=== PATIENT | male | born 1925 | race Caucasian/White ===

== ENCOUNTER 2016-07-29 04:26 | Inpatient (IN) | payer OTHER, MEDICARE ==
[2016-07-29] VITALS (30 sets, daily range): BP systolic 108–156; BP diastolic 74–98; PULSE 94–154; RESP 12–27; TEMP 97.3–98.4; O2SAT 81–99
[~2016-07-29] VITALS: Ht 182.9 cm; Wt 97.2 kg
[~2016-07-29 04:26] MED LIST: ADVA250A INH; ALPR0.5T3 PO; CILO100T PO; DIGO.125 PO; DILT30 PO; FURO20TA PO; HYDR-3533 PO; LANSO15 PO; MAGN400C2 PO; METO50TA PO; PLAV75TA PO; POTA-267 PO; PRED50TA PO; PRED5TAB PO; SALI0.652; SYMB160A INH; TRAZ50TA4 PO; ULTR50TA PO
[2016-07-29] MEDS ORDERED: DILTIAZEM HCL 25 MG/5 ML VIAL IV PUSH ONE (05:00)
[2016-07-29] MEDS ORDERED: SODIUM CHLORIDE 0.9% FLUSH 5 ML FLUSH IVF PRN ×3 (05:00→07:45)
--- NOTE | 2016-07-29 05:00 | PD ---
HPI Chief Complaint: Respiratory Symptoms Time Seen by Provider: 04:45 Travel History International Travel<30 days: No Contact w/Intl Traveler<30days: No Traveled to known affect area: No History of Present Illness HPI 89-year-old male presents to the emergency department by taxi transportation for evaluation of shortness of breath progressive worsening over the past one day. Patient is also had lower leg and pedal edema over the past 2 weeks, increasing acutely for four days. Patient has not contacted his [place] physician to notify them of these changes. Patient denies any chest pain or abdominal pain. No report of nausea or vomiting diarrhea dysuria frequency urgency skin rash or recent febrile illness. Patient has history of hypertension dyslipidemia sleep apnea atrial fibrillation aortic aneurysm repaired in 2010 COPD and anxiety. Patient was hospitalized June 2015 with severe sepsis and UTI. Patient rates pain as 0/10 in intensity. Patient states he lives alone and was too weak to drive himself to the hospital and did not feel he needed to come by EMS. Patient's primary care provider is through the [place] and his consulting software engineer is Dr. Collins. [facility] Past Medical History Narrative Medical cad, hypertension, dyslipidemia, sleep apnea, atrial fibrillation, aortic aneurysm repaired in 2010, COPD, anxiety, cardiac cath w/ stent placement, fibromyalgia, CVA, turp; nursing notes reviewed AAA: Yes Arthritis: Yes Asthma: No Atrial Fibrillation: Yes Autoimmune Disease: No Anxiety: No Depression: No Heart Rhythm Problems: Yes (A-FIB) Cancer: No Cardiovascular Problems: Yes (ATRIAL FIBRILLATION, CATH WITH STENTS ) High Cholesterol: Yes Chemotherapy: No Chest Pain: No Congestive Heart Failure: No COPD: Yes Cerebrovascular Accident: Yes ("MINI STROKE" ) Diabetes: No Diminished Hearing: Yes Endocrine: No Fibromyalgia: Yes Gastrointestinal Disorders: Yes GERD: Yes Glaucoma: No Genitourinary: Yes Headaches: No Hepatitis: No Hiatal Hernia: No Hypertension: Yes Immune Disorder: No Implanted Vascular Access Dvce: Yes Kidney Stones: No Musculoskeletal: Yes Neurologic: Yes Psychiatric: No Reproductive: No Respiratory: Yes (COPD) Immunizations Current: Yes Migraines: No Myocardial Infarction: No Radiation Therapy: No Renal Failure: No Seizures: No Sickle Cell Disease: No Sleep Apnea: Yes Thyroid Disease: No Ulcer: No Past Surgical History Abdominal Aneurysm Repair: Yes Abdominal Surgery: Yes (REPAIR OF RUPTURED AAA 08/2010, ) AICD: No Appendectomy: Yes Arteriovenous Shunt: No Body Medical Devices: CARDIAC STENTS , AAA STENT Cardiac Surgery: No Cholecystectomy: No Ear Surgery: No Endocrine Surgery: No Eye Surgery: No Genitourinary Surgery: No Gynecologic Surgery: Yes (TURP, SCROTAL SURGERY) Insulin Pump: No Joint Replacement: No Oral Surgery: No Pacemaker: No Thoracic Surgery: No Other Surgery: Yes Social History Alcohol Use: Yes (OCC) Tobacco Use: No Substance Use: No Allergies-Medications (Allergen,Severity, Reaction): Coded Allergies: No Known Allergies (Verified , 07/29/16) Reported Meds & Prescriptions Reported Meds & Active Scripts Active Reported Escitalopram (Escitalopram Oxalate) 5 Mg Tab 5 Mg PO DAILY Atorvastatin (Atorvastatin Calcium) 80 Mg Tab 80 Mg PO HS Lasix (Furosemide) 20 Mg Tab 20 Mg PO DAILY Clonazepam 0.5 Mg Tab 0.5 Mg PO HS PRN Donepezil 10 Mg Tab 10 Mg PO HS Prednisone 5 Mg Tab 5 Mg PO DAILY Proair Hfa 8.5 GM Inh (Albuterol Sulfate) 90 Mcg/Act Aer 2 Puff INH Q4-6H PRN 108 mcg/actuation Ditropan (Oxybutynin Chloride) 5 Mg Tab 5 Mg PO HS Lansoprazole 30 Mg Capdr 30 Mg PO DAILY Losartan (Losartan Potassium) 50 Mg Tab 50 Mg PO DAILY Amlodipine (Amlodipine Besylate) 5 Mg Tab 5 Mg PO DAILY Plavix (Clopidogrel Bisulfate) 75 Mg Tab 75 Mg PO BID Symbicort Inh (Budesonide/Formoterol Fumarate) 160-4.5 Mcg/Act Aero 2 Puff INH Q12HR Trazodone (Trazodone HCl) 50 Mg Tab 50 Mg PO HS PRN Advair Diskus Inh (Fluticasone-Salmeterol Inh) 100-50 Mcg/Blist Aer 1 Puff INH BID Rinse mouth after use. Review of Systems Except as stated in HPI: all other systems reviewed are Neg General / Constitutional: Positive: Chills, No: Fever HENT: No: Congestion Cardiovascular: Positive: Palpitations, Tachycardia, Edema, No: Chest Pain or Discomfort Respiratory: Positive: Shortness of Breath Gastrointestinal: No: Nausea, Vomiting, Diarrhea, Abdominal Pain Genitourinary: No: Urgency, Frequency Musculoskeletal: Positive: Edema, No: Myalgias, Arthralgias Skin: No Rash Neurologic: Positive: Weakness, Dizziness, No: Syncope, Focal Abnormalities, Coordination Problem Psychiatric: No: Anxiety, Depression Hematologic/Lymphatic: No: Easy Bruising Physical Exam Narrative GENERAL: Well-developed well-nourished male in no acute distress no respiratory distress; placed on cardiac monitor technician with atrial fibrillation with RVR SKIN: Warm and dry. HEAD: Normocephalic. EYES: No scleral icterus. No injection or drainage. NECK: Supple, trachea midline. No JVD or lymphadenopathy. CARDIOVASCULAR: Increased irregular irregular rate and rhythm without murmurs, gallops, or rubs. RESPIRATORY: Breath sounds equal bilaterally with bibasilar crackles. No accessory muscle use. GASTROINTESTINAL: Abdomen soft, non-tender, nondistended. MUSCULOSKELETAL: No cyanosis, pitting bilateral lower leg and pedal edema. BACK: Nontender without obvious deformity. No CVA tenderness. Data Data Last Documented VS Vital Signs Date Time Temp Pulse Resp B/P Pulse Ox O2 Delivery O2 Flow Rate FiO2 07/29/16 07:00 103 18 95 Nasal Cannula 2 07/29/16 07:00 116/86 07/29/16 04:35 97.3 Orders Complete Blood Count With Diff (07/29/16 04:46) Comprehensive Metabolic Panel (07/29/16 04:46) B-Type Natriuretic Peptide (07/29/16 04:46) Act Partial Throm Time (Ptt) (07/29/16 04:46) Prothrombin Time / Inr (Pt) (07/29/16 04:46) Magnesium (Mg) (07/29/16 04:46) Ckmb (Isoenzyme) Profile (07/29/16 04:46) Troponin I (07/29/16 04:46) Urinalysis - C+S If Indicated (07/29/16 04:46) Blood Culture (07/29/16 04:46) Iv Access Insert/Monitor (07/29/16 04:46) Electrocardiogram (07/29/16 04:46) Ecg Monitoring (07/29/16 04:46) Oximetry (07/29/16 04:46) Oxygen Administration (07/29/16 04:46) Chest, Single Ap (07/29/16 04:46) Lactic Acid (07/29/16 04:46) Diltiazem Inj (Cardizem Inj) (07/29/16 05:00) Diltiazem Inj (Cardizem Inj) (07/29/16 05:00) Digoxin (07/29/16 04:50) Furosemide Inj (Lasix Inj) (07/29/16 05:45) Ceftriaxone Inj (Rocephin Inj) (07/29/16 05:45) Calcium Gluconate (Calcium Gluconate) (07/29/16 05:45) Furosemide Inj (Lasix Inj) (07/29/16 06:30) ^ Medication Admin Instruction (07/29/16 07:09) ^ Notify Dr: Other (07/29/16 07:09) Phosphorus (Po4) (07/29/16 07:09) Potassium Chlor 40 Meq Premix (Kcl 40 Me (07/29/16 07:15) Potassium Chlor 20 Meq Premix (Kcl 20 Me (07/29/16 07:15) Potassium Cl 40 Meq/30 Ml Liq (Kcl 40 Me (07/29/16 07:15) Potassium Chlor 40 Meq Premix (Kcl 40 Me (07/29/16 07:15) Potassium Chlor 20 Meq Premix (Kcl 20 Me (07/29/16 07:15) Magnesium Sulfate Inj (Magnesium Sulfate (07/29/16 07:15) Magnesium Oxide (Mag-Ox) (07/29/16 07:15) Magnesium Sulfate Inj (Magnesium Sulfate (07/29/16 07:15) Potassium Phosphate (K-Phos) (07/29/16 07:15) Sodium Phosphate Inj (Sodium Phosphate I (07/29/16 07:15) Potassium Cl 40 Meq/30 Ml Liq (Kcl 40 Me (07/29/16 07:15) Potassium Phosphate (K-Phos) (07/29/16 07:15) Potassium Phosphate Inj (Potassium Phosp (07/29/16 07:15) Admit To Inpatient (07/29/16 ) Vital Signs (Adult) MAHSA.Q4H (07/29/16 07:09) Building Insulation Supervisor / Telemetry (07/29/16 07:09) Intake + Output MAHSA.QSHIFT (07/29/16 07:09) Diet Heart Healthy (07/29/16 Breakfast) Sodium Chloride 0.9% Flush (Ns Flush) (07/29/16 09:00) Sodium Chloride 0.9% Flush (Ns Flush) (07/29/16 07:15) Furosemide Inj (Lasix Inj) (07/29/16 09:00) Potassium Chloride (Kcl) (07/29/16 09:00) Basic Metabolic Panel (Bmp) (07/30/16 06:00) Troponin I (07/29/16 07:09) Troponin I (07/29/16 13:09) Resp Oxygen Antolin C Titrat 1-4 L (07/29/16 ) Consult Cardiology (07/29/16 ) Inpatient Certification (07/29/16 ) Activity Oob With Assistance (07/29/16 07:09) Ondansetron Inj (Zofran Inj) (07/29/16 07:15) Bisacodyl Supp (Dulcolax Supp) (07/29/16 07:15) Sennosides (Senokot) (07/29/16 07:15) Electrocardiogram (07/29/16 07:30) Electrocardiogram (07/29/16 13:30) Electrocardiogram (07/29/16 19:30) Acetaminophen (Tylenol) (07/29/16 07:15) (Hub Use Only)Inp Phy Cons/Ref (07/29/16 ) Labs Laboratory Tests Test 07/29/16 07/29/16 07/29/16 04:50 04:55 07:30 White Blood Count 12.5 TH/MM3 Red Blood Count 5.51 MIL/MM3 Hemoglobin 16.3 GM/DL Hematocrit 51.2 % Mean Corpuscular Volume 92.9 FL Mean Corpuscular Hemoglobin 29.6 PG Mean Corpuscular Hemoglobin 31.8 % Concent Red Cell Distribution Width 14.3 % Platelet Count 164 TH/MM3 Mean Platelet Volume 10.3 FL Neutrophils (%) (Auto) 73.6 % Lymphocytes (%) (Auto) 12.1 % Monocytes (%) (Auto) 9.7 % Eosinophils (%) (Auto) 4.3 % Basophils (%) (Auto) 0.3 % Neutrophils # (Auto) 9.3 TH/MM3 Lymphocytes # (Auto) 1.5 TH/MM3 Monocytes # (Auto) 1.2 TH/MM3 Eosinophils # (Auto) 0.5 TH/MM3 Basophils # (Auto) 0.0 TH/MM3 CBC Comment DIFF FINAL Differential Comment Prothrombin Time 14.3 SEC Prothromb Time International 1.3 RATIO Ratio Activated Partial 28.7 SEC Thromboplast Time Sodium Level 142 MEQ/L Potassium Level 3.5 MEQ/L Chloride Level 104 MEQ/L Carbon Dioxide Level 28.6 MEQ/L Anion Gap 9 MEQ/L Blood Urea Nitrogen 17 MG/DL Creatinine 1.30 MG/DL Estimat Glomerular Filtration 52 ML/MIN Rate Random Glucose 115 MG/DL Calcium Level 8.1 MG/DL Phosphorus Level 2.8 MG/DL Magnesium Level 1.5 MG/DL Total Bilirubin 1.1 MG/DL Aspartate Amino Transf 22 U/L (AST/SGOT) Alanine Aminotransferase 42 U/L (ALT/SGPT) Alkaline Phosphatase 182 U/L Total Creatine Kinase 30 U/L Troponin I 0.02 NG/ML B-Type Natriuretic Peptide 435 PG/ML Total Protein 7.3 GM/DL Albumin 3.1 GM/DL Digoxin Level 0.1 NG/ML Lactic Acid Level 2.3 mmol/L Urine pH 6.0 Urine Protein TRACE mg/dL Urine Glucose (UA) NEG mg/dL Urine Ketones NEG mg/dL Urine Occult Blood TRACE Urine Nitrite NEG Urine Bilirubin NEG Urine Leukocyte Esterase SMALL MDM Medical Decision Making Medical Screen Exam Complete: Yes Emergency Medical Condition: Yes Medical Record Reviewed: Yes Interpretation(s) EKG: Atrial fibrillation with RVR and rare PVC QS inferiorly no acute ST elevation or injury pattern change noted Chest x-ray: Diffuse vascular congestion with cardiomegaly no focal infiltrate or effusion Metabolic panel: Normal range renal function mild hypocalcemia of 8.1 normal potassium 3.5 Troponin I less than 0.02, not elevated; CK total 30, not elevated; BNP elevated at 435 Lactic acid elevated 2.3 Coagulation studies: INR 1.3, PT 14.3 mildly elevated; aPTT 28.7 within normal range Differential Diagnosis Atrial fibrillation with RVR, CHF, COPD, ACS, MT, electrolyte disturbance, sepsis Narrative Course Patient is on cardiac monitor technician IV access obtained specimens questions for resulting patient administered weight-based Cardizem with Cardizem infusion ordered to be administered as tolerated @ 5:38 HR now 106-115 after cardiazem 0.25 mg/kg bolus and infusion initiated; patient with bibasilar rales with vascular congestion by cxr and elevated bnp; patient administered iv lasix At 6:30 AM patient continues to show improvement however with blood pressure intermittently decreasing below 100 mmHg will admit to ICU, patient's case discussed with director skills aware patient will be admitted for A. fib COPD and CHF. Patient's case discussed with [place] hospitalist will admit to Dr. Alberts and consult was placed to patient's consulting software engineer Dr. Collins and 2 Dr[address] Etelvina Main. Critical Care Narrative Aggregate critical care time was 40 minutes. Time to perform other separately billable procedures was not included in the critical care time. My time did not include minutes spent treating any other patients simultaneously or on activities that did not directly contribute to the patient's treatment. The services I provided to this patient were to treat and/or prevent clinically significant deterioration that could result in: Arrhythmia, respiratory failure , I provided critical care services requiring my management, as noted below: Chart data review, documentation time, medication orders and management, vital sign assessments/reviewing monitor data, ordering and reviewing lab tests, ordering and interpreting/reviewing x-rays and diagnostic studies, care of the patient and discussion of the patient with the admitting physicians. Sepsis Criteria SIRS Criteria (2 or more): Heart rate over 90, WBC > 24307, < 4000 or > 10% bands Physician Communication Physician Communication call placed for admission --> --admit to Dr Alberts; case discussed with director skills --as going to [facility] ICU--DR Pozo --aware of patient going to ICU -- consult as needed ( saw patient briefly in the ED, also recommends Dr Main consult) Diagnosis Primary Impression: CHF (congestive heart failure) Qualified Code: I50.9 - Acute congestive heart failure, unspecified congestive heart failure type Additional Impressions: Atrial fibrillation with RVR SIRS (systemic inflammatory response syndrome) Admitting Information Admitting Physician Requests: AdmTamiko Pineda MD Jul 29, 2016 05:00
[2016-07-29 05:01] LABS: AUTOMATED NEUTROPHIL # 9.3 TH/MM3 (1.8-7.7); BASOPHIL % 0.3 % (0.0-2.0); EOSINOPHIL # 0.5 TH/MM3 (0-0.4); EOSINOPHIL % 4.3 % (0.0-4.0); HEMATOCRIT 51.2 % (39.0-51.0); LYMPH % 12.1 % (9.0-44.0); LYMPHOCYTE # 1.5 TH/MM3 (1.0-4.8); MEAN CELL VOLUME 92.9 FL (80.0-100.0); MEAN CORPUSCULAR HEMOGLOBIN 29.6 PG (27.0-34.0); MEAN CORPUSCULAR HGB CONC 31.8 % (32.0-36.0); MONO % 9.7 % (0.0-8.0); NEUT % 73.6 % (16.0-70.0); PLATELET COUNT 164 TH/MM3 (150-450); RED BLOOD COUNT 5.51 MIL/MM3 (4.50-5.90); RED CELL DISTRIBUTION WIDTH 14.3 % (11.6-17.2); WHITE BLOOD COUNT 12.5 TH/MM3 (4.0-11.0)
[2016-07-29 05:07] LABS: CHLORIDE 104 MEQ/L (98-107); POTASSIUM 3.5 MEQ/L (3.5-5.1); SODIUM (NA) 142 MEQ/L (136-145)
[2016-07-29] MEDS: DILTIAZEM INJ 125 MG in SODIUM CHLORIDE 0.9% INJ 100 ML IV SCH ×2 (05:09→23:52)
[2016-07-29 05:11] LABS: ANION GAP 9 MEQ/L (5-15); BICARBONATE 28.6 MEQ/L (21.0-32.0); BLOOD UREA NITROGEN 17 MG/DL (7-18); MAGNESIUM 1.5 MG/DL (1.5-2.5)
[2016-07-29 05:14] LABS: ALT (GPT) 42 U/L (12-78); APTT (PATIENT) 28.7 SEC (24.3-30.1); AST (GOT) 22 U/L (15-37); GLOMERULAR FILTRATION RATE 52 ML/MIN (>89); INTERNATIONAL NORMALIZED RATIO 1.3 RATIO; PROTHROMBIN TIME - PATIENT 14.3 SEC (9.8-11.6)
[2016-07-29 05:15] LABS: TOTAL BILIRUBIN ADULT 1.1 MG/DL (0.2-1.0)
[2016-07-29 05:17] LABS: ALKALINE PHOSPHATASE 182 U/L (45-117); CREATINE KINASE 30 U/L (39-308)
[2016-07-29 05:32] LABS: HEMO FLAGS DIFF FINAL
[2016-07-29] MEDS ORDERED: SYMB160A INH (05:32)
[2016-07-29] MEDS ORDERED: ADVA100A INH (05:32)
[2016-07-29] MEDS ORDERED: TRAZ50TA12 PO (05:32)
[2016-07-29] MEDS ORDERED: PLAV75TA29 PO (05:33)
[2016-07-29] MEDS ORDERED: FUROSEMIDE 20 MG/2 ML VIAL IV PUSH ONE ×2 (05:45→06:30)
[2016-07-29] MEDS ORDERED: cefTRIAXone INJ 1,000 MG in SODIUM CHLORIDE 0.9% INJ 100 ML IV ONE (05:45)
[2016-07-29] MEDS ORDERED: CALCIUM GLUCONATE 500 MG TAB PO ONE (05:45)
--- NOTE | 2016-07-29 05:48 | RADHPO ---
EXAM DATE/TIME: 07/29/2016 05:20 [place] COMPARISON: CHEST SINGLE AP, July 05, 2015, 16:41. INDICATIONS : Short of breath MEDICAL HISTORY : Chronic obstructive pulmonary disease. SURGICAL HISTORY : None. ENCOUNTER: Initial ACUITY: 1 day PAIN SCORE: 4/10 LOCATION: Bilateral chest FINDINGS: Mild diffuse interstitial prominence again noted. No acute pneumonia seen. No pleural effusion or pne umothorax. More prominent cardiac silhouette. CONCLUSION: Mild cardiomegaly appears new. However, no evidence of acute cardiopulmonary disease. Chronic interst itial changes are again noted. Reese Gomez MD on July 29, 2016 at 5:45 Board Certified Radiologist. This report was verified electronically.
[2016-07-29 05:51] LABS: DIGOXIN 0.1 NG/ML (0.8-2.0)
[2016-07-29] MEDS ORDERED: AMLO5TAB2 PO (06:07)
[2016-07-29] MEDS ORDERED: LANS30CA PO (06:07)
[2016-07-29] MEDS ORDERED: LOSA50TA PO (06:07)
[2016-07-29] MEDS ORDERED: OXYB5TAB10 PO (06:07)
[2016-07-29] MEDS ORDERED: PRED5TAB PO (06:11)
[2016-07-29] MEDS ORDERED: ALBUAER3 INH (06:11)
[2016-07-29] MEDS ORDERED: DONE10TA7 PO (06:11)
[2016-07-29] MEDS ORDERED: CLON0.5T PO (06:11)
[2016-07-29] MEDS ORDERED: ESCI5TAB PO (06:14)
[2016-07-29] MEDS ORDERED: ATOR1TAB18 PO (06:14)
[2016-07-29] MEDS ORDERED: FURO1TAB62 PO (06:14)
[2016-07-29] MEDS ORDERED: POTASSIUM CHLOR 40 MEQ PREMIX 100 ML IV PRN ×2 (07:15)
[2016-07-29] MEDS ORDERED: SODIUM PHOSPHATE INJ 30 MMOL in SODIUM CHLOR 0.9% 250 ML INJ 240 ML IV PRN (07:15)
[2016-07-29] MEDS ORDERED: ONDANSETRON HCL 4 MG/2 ML VIAL IVP PRN (07:15)
[2016-07-29] MEDS ORDERED: MAGNESIUM OXIDE 400 MG TAB PO PRN (07:15)
[2016-07-29] MEDS ORDERED: POTASSIUM CHLOR 20 MEQ PREMIX 100 ML IV PRN (07:15)
[2016-07-29] MEDS ORDERED: SENNOSIDES 8.6 MG TAB PO PRN (07:15)
[2016-07-29] MEDS ORDERED: ACETAMINOPHEN 325 MG TAB PO PRN (07:15)
[2016-07-29] MEDS ORDERED: POTASSIUM PHOSPHATE MONOBASIC 500 MG TAB PO PRN (07:15)
[2016-07-29] MEDS ORDERED: MAGNESIUM SULFATE INJ 4 GM in SODIUM CHLORIDE 0.9% INJ 92 ML IV PRN (07:15)
[2016-07-29] MEDS ORDERED: MAGNESIUM SULFATE INJ 2 GM in SODIUM CHLORIDE 0.9% INJ 96 ML IV PRN (07:15)
[2016-07-29] MEDS ORDERED: POTASSIUM CL 40 MEQ/30 ML LIQ UDC PO/TUBE PRN ×2 (07:15)
[2016-07-29] MEDS ORDERED: POTASSIUM PHOSPHATE INJ 30 MMOL in SODIUM CHLOR 0.9% 250 ML INJ 250 ML IV PRN (07:15)
[2016-07-29] MEDS ORDERED: BISACODYL 10 MG SUPP PR PRN (07:15)
[2016-07-29] MEDS ORDERED: POTASSIUM PHOSPHATE MONOBASIC 500 MG TAB PO/TUBE PRN (07:15)
[2016-07-29 07:39] LABS: BLOOD, URINE TRACE (NEG); GLUCOSE,URINE NEG (NEG); KETONE, URINE NEG (NEG); NITRITE,URINE NEG (NEG)
[2016-07-29 07:49] LABS: METHOD OF COLLECTION VOIDED; URINE COLOR YELLOW (YELLW/STRAW)
[2016-07-29 08:06] LABS: BACTERIA, URINE MANY /hpf; COMMENT (UR) CULTURE INDICATED; CULTURE IF INDICATED CULTURE INDICATED; SQUAMOUS EPITHELIAL CELL URINE 0-2 /hpf (0-5)
[2016-07-29] MEDS: SODIUM CHLORIDE 0.9% FLUSH 5 ML FLUSH IVF SCH ×2 (08:58→21:00)
[2016-07-29] MEDS: FUROSEMIDE 40 MG/4 ML VIAL IVP SCH ×2 (08:59→18:22)
[2016-07-29] MEDS ORDERED: SODIUM CHLORIDE 0.9% FLUSH 5 ML FLUSH IVF SCH (09:00)
[2016-07-29] MEDS: POTASSIUM CHLORIDE 20 MEQ CONTROLLED RELEASE TAB PO SCH ×2 (09:04→20:31)
--- NOTE | 2016-07-29 09:32 | EKG ---
Date Performed: 07/29/2016 Time Performed: 08:18:42 PTAGE: 89 years EKG: Atrial fibrillation with rapid ventricular response with frequent multifocal PVCs or aberra nt ventricular conduction Left axis deviation Inferior infarct - age undetermined Possible anterior i nfarct - age undetermined Abnormal ECG PREVIOUS TRACING : 07/29/2016 04.57 No significant change from previous tracing noted. DOCTOR: Tres Duran Interpretating Date/Time 07/29/2016 09:30:27
--- NOTE | 2016-07-29 09:33 | EKG ---
Date Performed: 07/29/2016 Time Performed: 04:57:24 PTAGE: 89 years EKG: Probable atrial fibrillation with rapid ventricular response with PVC(s) or aberrant ventri cular conduction Left axis deviation Inferior infarct - age undetermined Abnormal ECG PREVIOUS TRACING : 07/07/2015 08.36 Compared to previous tracing, heart rate has increased. DOCTOR: Tres Duran Interpretating Date/Time 07/29/2016 09:31:31
--- NOTE | 2016-07-29 10:10 | MH ---
cc: DARRIAN AKHTAR MD DATE OF ADMISSION: 07/29/2016 CHIEF COMPLAINT Shortness of breath. HISTORY OF PRESENT ILLNESS This is an 89-year-old male with past medical/surgical history significant for coronary artery disease, hypertension, hyperlipidemia, sleep apnea, atrial fibrillation and abdominal aortic aneurysm repaired in 2010, COPD, anxiety, cardiac catheterization with stent placement, fibromyalgia, CVA, transurethral resection of the prostate, appendectomy, scrotal surgery, who came to the ER at [facility] complaining of shortness of breath which was progressively worsening for the last four days. His significant other is at the bedside who is also the health care surrogate, stating that his legs were getting edematous and getting worse and he was also getting more short of breath. He denies any chest pain or any abdominal pain. He denies any nausea or vomiting, diarrhea, constipation, frequent painful urination, burning urination, blood in the stool or black stool. He denies any palpitations, dizziness or lightheadedness. He denies any headache. Other than that nothing significant. When I examined the patient, the patient feels better and he has no symptoms or complaints at the time of examination. PAST MEDICAL/SURGICAL HISTORY As dictated above. SOCIAL HISTORY Denies smoking but he is an ex-smoker, quit 18 years ago. Smoked three packs a day. He lives alone. He is a retired state highway police officer. FAMILY HISTORY Not significant. ALLERGIES No known drug allergies. MEDICATIONS 1. Lexapro 5 mg p.o. daily. 2. Lipitor 18 mg p.o. daily. 3. Lasix 20 mg p.o. daily. 4. Clonazepam 0.5 mg p.o. h.s. p.r.n. anxiety. 5. Donepezil 10 mg p.o. h.s. 6. Prednisone 5 mg p.o. daily. 7. ProAir HFA, two puffs inhalation q.4h. 8. Ditropan XL 5 mg p.o. daily. 9. Lansoprazole 30 mg p.o. daily. 10.Losartan 50 mg p.o. daily. 11.Amlodipine 5 mg p.o. daily. 12.Cymbicort two puffs inhalation q.12h. 13.Advair Diskus, one puff inhalation twice a day. REVIEW OF SYSTEMS Positive for mild shortness of breath, generalized weakness and leg edema. All other review of systems is negative. PHYSICAL EXAMINATION GENERAL: This is an 89-year-old male sitting in a chair, not in acute distress. VITAL SIGNS: Temperature 97.3, heart rate 103, respirations 18, blood pressure 116/86. O2 saturation 95% on two liter nasal cannula. HEENT: Normocephalic, atraumatic. Extraocular movements intact. Pupils equal, round and reactive to light. Oral mucosa moist. NECK: Supple. No visible thyromegaly or neck mass. Trachea is central. CARDIOVASCULAR: Regular rate and rhythm. LUNGS: Bilateral crackles and decreased air entry. ABDOMEN: Soft, nontender. Bowel sounds audible. EXTREMITIES: No cyanosis or clubbing. +2 pitting edema bilateral lower extremities. Full range of motion of all extremities. NEUROLOGIC: Awake, alert and oriented x4. No focal deficit. SKIN: Warm and dry. PSYCHIATRIC: The patient is cooperative. Mood and affect is normal. LABORATORY DATA CBC is unremarkable except for WBC count of 12.5 high, hemoglobin 16.3 normal, hematocrit 51.2 high, MCHC 31.8 low, neutrophils 73.6 high, monos 9.7 high, eosinophils 4.3 high. CMP is unremarkable except for GFR 52 low, glucose 115 high, lactic acid 2.3 high, magnesium 1.5, total bilirubin 1.1, alkaline phosphatase 182, creatinine kinase 30, troponin-I 0.02 x2, BNP 435 high, albumin 3.1. PT 14.3 high, INR 1.3, APTT 28.7. Urine examination shows mild leukocyte esterase, 9-14 wbc's in the urine, many bacteria, trace occult blood. Culture indicated. Digoxin level 0.1 low. IMAGING DATA Chest x-ray was done and shows mild cardiomegaly appears new, however, no evidence of acute cardiopulmonary disease. Chronic interstitial changes are again noted. ASSESSMENT AND PLAN 1. This is an 89-year-old male who came to the ER diagnosed with shortness of breath most probably secondary to acute on chronic systolic congestive heart failure. Will do strict I's and O's, daily weights, fluid restriction to 1.5 liters a day, salt restriction to 2 grams a day. The patient is on Lasix 40 mg IV twice a day. The patient has crackles in the lungs and leg edema. Cardiology is consulted for further recommendations. 2. Shortness of breath with a history of COPD. Continue the home medication. Pulmonary is consulted. 3. History of depression. Continue the home medication. 4. History of coronary artery disease with stent placement. Continue the home medication. 5. History of hyperlipidemia. Continue with Lipitor 80 mg p.o. daily. 6. History of depression. Continue with Lexapro 5 mg p.o. daily. 7. History of anxiety. Continue with clonazepam 0.5 mg p.o. h.s. p.r.n. anxiety. 8. History of dementia. Continue with donepezil 10 mg p.o. daily. 9. History of urine incontinence. Continue with Ditropan 5 mg p.o. h.s. 10.History of GERD. Prevacid 30 mg p.o. daily. 11.History of COPD. Continue home medication. 12.DVT prophylaxis. Heparin 5000 units subcutaneous twice a day. 13.GI prophylaxis. Protonix 40 mg p.o. daily. 14.We are going to manage the patient on a daily basis and make recommendations on a daily basis. Darrian Akhtar MD EA/DAVID /9:12 AM /10:09 AM
--- NOTE | 2016-07-29 13:02 | MB ---
cc: KULWINDER BUSTILLO DATE OF CONSULTATION: 07/29/2016 HISTORY OF PRESENT ILLNESS Mr. Rosas is an 89-year-old white male, a patient of Dr. Collins with a history of chronic atrial fibrillation, COPD, coronary artery disease and congestive heart failure. He has had increased shortness of breath initially with exertion and progressively at rest over the last week. He has had also increased edema of his lower extremity. He has not had any chest pain. His diuretics have been adjusted by his primary care physician recently. The patient has also had generalized weakness. PAST MEDICAL HISTORY Positive for: 1. Coronary artery disease. 2. Coronary stenting. 3. Chronic atrial fibrillation. 4. Hypertension. 5. Dyslipidemia. 6. Sleep apnea. 7. Aortic aneurysm repair in 2010. 8. COPD. 9. Anxiety. 10. Fibromyalgia. 11. TIA/CVA. 12. TURP. 13. History of neurocardiogenic syncope. 14. Torn retina status post laser treatment. 15. Throat polyp surgery. MEDICATION At home include: 1. Plavix 75 mg a day. 2. Digoxin 0.125 mg a day. 3. Nitroglycerin p.r.n. 4. Metoprolol 25 mg which was weaned off. 5. Diltiazem. 6. Cozaar. 7. Donepezil. 8. Advair Diskus. 9. Lansoprazole. 10. Escitalopram. 12. Prednisone. 13. Tramadol. 14. Vitamin D. ALLERGIES The patient has intolerance to STATINS which result in leg cramps and weakness. SOCIAL HISTORY The patient does not smoke but used to smoke in the past. He drinks alcohol occasionally. FAMILY HISTORY Negative for heart disease. REVIEW OF SYSTEMS Otherwise negative. PHYSICAL EXAMINATION VITAL SIGNS: Blood pressure 115/86, pulse 103 and irregular. HEENT: Negative. NECK: 2+ carotid upstrokes. No bruits. LUNGS: Bibasilar crackles. HEART: Irregularly, irregular with no murmur, gallop or rub. ABDOMEN: Soft, no bruits. EXTREMITIES: 1+ pretibial and 2+ pedal pitting edema. 1+ distal pulses. NEUROLOGIC: Grossly nonfocal. EKG EKG was reviewed and showed atrial fibrillation with increased ventricular response, left axis, inferior Q-waves, delayed R-wave progression in precordial leads and nonspecific ST-T wave changes. LABORATORY DATA Hemoglobin 16.3, potassium 3.5, creatinine 1.3. AST and ALT normal. CK 30, troponin negative x 2, BNP 435. Echocardiogram in 2014 showed ejection fraction of 54%, LVH, bilateral atrial enlargement, dilated aortic root. DIAGNOSIS 1. Acute congestive heart failure. 2. Atrial fibrillation with rapid ventricular response. 3. COPD. 4. Hypertension. 5. Dyslipidemia. 6. Status post abdominal aortic aneurysm repair. DISPOSITION Mr. Rosas will be admitted and monitored on telemetry. We will continue IV diuresis, closely monitoring his renal function and electrolytes. He is ruling out for myocardial infarction by enzymes. We will obtain echocardiogram to reevaluate his left ventricular function. I recommend starting him on Diltiazem p.o. for rate control. He is feeling better after significant diuresis in the emergency room. He will follow up with Dr. Collins, his primary pumping station supervisor, in his office after discharge. MD BRIGID Neely/MARINA /9:06 AM /12:29 PM YRIS
--- NOTE | 2016-07-29 14:49 | EC ---
Study Study Date:07/29/2016 STUDY CONCLUSIONS SUMMARY - Left ventricle: The cavity size was mildly dilated. Wall thickness was normal. Systolic function was severely reduced by visual assessment. The estimated ejection fraction was in the range of 30% to 35%. Diffuse hypokinesis. - Aortic valve: Valve mobility was restricted. Transvalvular velocity was increased less than expected, due to low cardiac output. There was moderate to severe stenosis. Mild regurgitation. Valve area: 1.03cm^2(VTI). Valve area: 1.29cm^2 (Vmax). - Aortic root: The aortic root was moderately dilated. - Mitral valve: Mild regurgitation. - Left atrium: The atrium was mildly to moderately dilated. - Right atrium: The atrium was mildly dilated. - Tricuspid valve: Mild regurgitation. - Pulmonary arteries: Systolic pressure was mildly increased. PA peak pressure: 41mm Hg (S). If LV function is below 40, please consider prescribing an ACEI or ARB or document rationale for non-use. PROCEDURE DATA STUDY STATUS: Elective. Procedure: Transthoracic echocardiography. Image quality was good. Scanning was performed from the parasternal, apical, and subcostal acoustic windows. Study completion: The patient tolerated the procedure well. Transthoracic echocardiography. M-mode, complete 2D, complete spectral Doppler, and color Doppler. Patient status: Inpatient. CARDIAC ANATOMY LEFT VENTRICLE: The cavity size was mildly dilated. Wall thickness was normal. Systolic function was severely reduced by visual assessment. The estimated ejection fraction was in the range of 30% to 35%. Diffuse hypokinesis. AORTIC VALVE: Trileaflet; mildly thickened leaflets. Valve mobility was restricted. Doppler: Transvalvular velocity was increased less than expected, due to low cardiac output. There was moderate to severe stenosis. Mild regurgitation. Valve area: 1.03cm^2(VTI). Valve area: 1.29cm^2 (Vmax). Mean gradient: 8mm Hg (S). Peak gradient: 13mm Hg (S). AORTA: Aortic root: The aortic root was moderately dilated. MITRAL VALVE: Structurally normal valve. Doppler: Transvalvular velocity was within the normal range. There was no evidence for stenosis. Mild regurgitation. LEFT ATRIUM: The atrium was mildly to moderately dilated. RIGHT VENTRICLE: The cavity size was normal. Wall thickness was normal. PULMONIC VALVE: Doppler: Transvalvular velocity was within the normal range. There was no evidence for stenosis. No regurgitation. TRICUSPID VALVE: Structurally normal valve. Doppler: Transvalvular velocity was within the normal range. Mild regurgitation. PULMONARY ARTERY: Systolic pressure was mildly increased. RIGHT ATRIUM: The atrium was mildly dilated. PERICARDIUM: There was no pericardial effusion. SYSTEMIC VEINS: Inferior vena cava: The vessel was normal in size. BASIC MEASUREMENTS ADULT NORMAL Left ventricle LV internal dimension, ED, chordal level, 47.3 mm 43-52 PLAX LV internal dimension, ES, chordal level, 36 mm 23-38 PLAX Fractional shortening, chordal level, PLAX *24 % >29 LV posterior wall thickness, ED 9.8 mm IVS/LVPW ratio, ED 1.18 <1.3 Ventricular septum Septal thickness, ED 11.6 mm Aortic valve Leaflet separation *9 mm 15-26 Right ventricle RV internal dimension, ED, PLAX 31.5 mm 19-38 BASIC MEASUREMENTS ADULT NORMAL Aortic valve Leaflet separation *9 mm 15-26 Aorta Root diameter, ED *45 mm 20-37 Left atrium Anterior-posterior dimension, ES 39 mm 19-40 LA/aortic root ratio 0.87 DOPPLER MEASUREMENTS ADULT NORMAL Main pulmonary artery Pressure, S *41 mm Hg =30 Aortic valve Peak velocity, S 181 cm/s Mean velocity, S 136 cm/s VTI, S 33.6 cm Mean gradient, S 8 mm Hg Peak gradient, S 13 mm Hg Valve area, VTI 1.03 cm^2 Valve area, Vmax 1.29 cm^2 Tricuspid valve Regurgitant peak velocity 274 cm/s Peak RV-RA gradient, S 30 mm Hg Maximal regurgitant velocity 274 cm/s Systemic veins Estimated CVP 10 mm Hg Right ventricle RV pressure, S *41 mm Hg <30 LEGEND: Mean values are shown as u=mean value. Asterisk (*) leal values outside specified normal range. Prepared and signed by Flakito Seaman [id number]
[2016-07-29] MEDS: POTASSIUM CHLOR 20 MEQ PREMIX 100 ML IV PRN ×2 (18:32→20:32)
[2016-07-29] MEDS ORDERED: CHLORHEXIDINE GLUCONATE 2 % 1 PACK (2 CLOTHS)(extra cloths) TOP PRN (19:15)
[2016-07-30] VITALS (34 sets, daily range): BP systolic 93–147; BP diastolic 62–94; PULSE 70–100; RESP 15–30; TEMP 97.6–99.1; O2SAT 90–100
[2016-07-30] MEDS: CHLORHEXIDINE GLUCONATE 2 % 1 PACK (2 CLOTHS)(taper/protocol) TOP SCH (04:00)
[2016-07-30 05:11] LABS: CHLORIDE 103 MEQ/L (98-107); POTASSIUM 3.5 MEQ/L (3.5-5.1); SODIUM (NA) 143 MEQ/L (136-145)
[2016-07-30 05:15] LABS: ANION GAP 8 MEQ/L (5-15); BICARBONATE 31.6 MEQ/L (21.0-32.0); BLOOD UREA NITROGEN 19 MG/DL (7-18)
[2016-07-30 05:18] LABS: ALT (GPT) 30 U/L (12-78); AST (GOT) 9 U/L (15-37); GLOMERULAR FILTRATION RATE 57 ML/MIN (>89)
[2016-07-30 05:19] LABS: TOTAL BILIRUBIN ADULT 0.7 MG/DL (0.2-1.0)
[2016-07-30 05:20] LABS: AUTOMATED NEUTROPHIL # 5.7 TH/MM3 (1.8-7.7); BASOPHIL % 0.4 % (0.0-2.0); EOSINOPHIL # 0.8 TH/MM3 (0-0.4); EOSINOPHIL % 9.1 % (0.0-4.0); HEMATOCRIT 46.5 % (39.0-51.0); HEMO FLAGS DIFF FINAL; LYMPH % 17.7 % (9.0-44.0); LYMPHOCYTE # 1.6 TH/MM3 (1.0-4.8); MEAN CORPUSCULAR HEMOGLOBIN 30.3 PG (27.0-34.0); MEAN CORPUSCULAR HGB CONC 32.9 % (32.0-36.0); MONO % 10.5 % (0.0-8.0); NEUT % 62.3 % (16.0-70.0); PLATELET COUNT 137 TH/MM3 (150-450); RED BLOOD COUNT 5.06 MIL/MM3 (4.50-5.90); RED CELL DISTRIBUTION WIDTH 13.3 % (11.6-17.2); WHITE BLOOD COUNT 9.1 TH/MM3 (4.0-11.0)
[2016-07-30 05:21] LABS: ALKALINE PHOSPHATASE 161 U/L (45-117)
[2016-07-30] MEDS: POTASSIUM CHLOR 20 MEQ PREMIX 100 ML IV PRN (08:00)
--- NOTE | 2016-07-30 09:08 | HHI.PR ---
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 Review of Systems Constitutional Constitutional: Fatigue, Weakness Pulmonary Respiratory: Shortness of Breath Vitals/Results Intake & Output 07/29/16 07/29/16 07/30/16 15:00 23:00 07:00 Intake Total 100 ml 882 ml 200 ml Output Total 350 ml 1200 ml 500 ml Balance -250 ml -318 ml -300 ml Intake Oral 600 ml 120 ml IV Total 100 ml 282 ml 80 ml Output Urine Total 350 ml 1200 ml 500 ml Vital Signs Vital Signs Date Time Temp Pulse Resp B/P Pulse Ox O2 Delivery O2 Flow Rate FiO2 07/30/16 07:00 92 07/30/16 06:00 100 22 110/74 94 07/30/16 06:00 100 07/30/16 06:00 94 2.00 07/30/16 05:03 96 24 136/94 94 07/30/16 05:03 96 07/30/16 04:01 88 07/30/16 04:01 97.8 88 19 139/90 90 07/30/16 03:01 90 21 135/89 92 07/30/16 02:01 100 07/30/16 02:01 100 21 110/78 93 07/30/16 02:00 93 2.00 07/30/16 01:01 92 19 117/75 93 07/30/16 00:01 92 07/30/16 00:01 98.6 92 20 147/92 95 07/30/16 00:00 95 2.00 07/29/16 23:01 96 16 147/97 81 07/29/16 23:01 96 07/29/16 22:20 97 2.00 07/29/16 22:01 98 22 132/97 98 07/29/16 22:01 98 07/29/16 22:00 96 2.00 07/29/16 21:01 100 23 127/94 99 07/29/16 21:01 100 07/29/16 20:03 100 07/29/16 20:03 97.9 100 25 136/87 93 07/29/16 19:05 108 26 146/95 90 07/29/16 18:30 94 23 95 07/29/16 18:15 98 24 07/29/16 18:00 99 07/29/16 18:00 94 12 136/84 07/29/16 17:45 102 22 96 07/29/16 17:30 102 27 07/29/16 17:15 98.4 96 22 131/88 94 07/29/16 17:00 102 16 142/89 95 Nasal Cannula 2 07/29/16 16:00 98 16 156/92 94 Nasal Cannula 2 07/29/16 15:00 105 18 136/90 95 Nasal Cannula 2 07/29/16 14:00 95 18 136/91 95 Nasal Cannula 2 07/29/16 13:55 110 07/29/16 13:00 97 16 119/89 95 Nasal Cannula 2 07/29/16 12:00 98 18 136/86 96 Nasal Cannula 2 07/29/16 11:00 102 16 134/80 95 Nasal Cannula 2 07/29/16 10:00 100 18 128/84 95 Nasal Cannula 2 CBC/BMP: 07/30/16 0440 07/30/16 0440 Lab Results Laboratory Tests Test 07/29/16 07/30/16 13:05 04:40 Troponin I 0.02 NG/ML White Blood Count 9.1 TH/MM3 Red Blood Count 5.06 MIL/MM3 Hemoglobin 15.3 GM/DL Hematocrit 46.5 % Mean Corpuscular Volume 92.0 FL Mean Corpuscular Hemoglobin 30.3 PG Mean Corpuscular Hemoglobin 32.9 % Concent Red Cell Distribution Width 13.3 % Platelet Count 137 TH/MM3 Mean Platelet Volume 10.0 FL Neutrophils (%) (Auto) 62.3 % Lymphocytes (%) (Auto) 17.7 % Monocytes (%) (Auto) 10.5 % Eosinophils (%) (Auto) 9.1 % Basophils (%) (Auto) 0.4 % Neutrophils # (Auto) 5.7 TH/MM3 Lymphocytes # (Auto) 1.6 TH/MM3 Monocytes # (Auto) 1.0 TH/MM3 Eosinophils # (Auto) 0.8 TH/MM3 Basophils # (Auto) 0.0 TH/MM3 CBC Comment DIFF FINAL Differential Comment Sodium Level 143 MEQ/L Potassium Level 3.5 MEQ/L Chloride Level 103 MEQ/L Carbon Dioxide Level 31.6 MEQ/L Anion Gap 8 MEQ/L Blood Urea Nitrogen 19 MG/DL Creatinine 1.20 MG/DL Estimat Glomerular Filtration 57 ML/MIN Rate Random Glucose 101 MG/DL Calcium Level 8.1 MG/DL Magnesium Level 1.9 MG/DL Total Bilirubin 0.7 MG/DL Aspartate Amino Transf 9 U/L (AST/SGOT) Alanine Aminotransferase 30 U/L (ALT/SGPT) Alkaline Phosphatase 161 U/L Total Protein 7.1 GM/DL Albumin 2.9 GM/DL Physical Exam General General Appearance: No Acute Distress, Comfortable Eyes Eye Exam: Pupils Equal, Pupils Reactive, Sclera White, Extraocular Movement Intact Throat Throat Exam: Oral Mucosa [place] & Moist, Oral Pharynx Normal Neck Neck Exam: Neck Supple, Trachea Midline Pulmonary Resp Exam: Crackles, Rhonchi Cardiology CV Exam: Regular Gastrointestinal/Abdomen GI Exam: Soft, Non-Tender, Bowel Sounds Present Musculoskeletal MS Exam: Normal Tone Integumentary Skin Exam: Clear, Warm, Dry, Intact Extremeties Extremities Exam: Pitting Edema Neurologic Neuro Exam: Alert, Awake, Oriented, Speech Clear, Moving All Extremities Psychiatric Psych Exam: Appropriate Responses VTE Prophylaxis VTE Prophylaxis Meds: Heparin PUD Prophylasis PUD Prophylaxis: Protonix Assessment/Plan Assessment/Plan ASSESSMENT AND PLAN 1. This is an 89-year-old male who came to the ER diagnosed with shortness of breath most probably secondary to acute on chronic systolic congestive heart failure. Will do strict I's and O's, daily weights, fluid restriction to 1.5 liters a day, salt restriction to 2 grams a day. The patient is on Lasix 40 mg IV twice a day. Cardiology input noted for further recommendations. 2 D Echo noted EF 30-35% 2. Shortness of breath with a history of COPD. Continue the home medication. 3. History of depression. Continue the home medication. 4. History of coronary artery disease with stent placement. Continue the home medication. 5. History of hyperlipidemia. Continue with Lipitor 80 mg p.o. daily. 6. History of depression. Continue with Lexapro 5 mg p.o. daily. 7. History of anxiety. Continue with clonazepam 0.5 mg p.o. h.s. p.r.n. anxiety. 8. History of dementia. Continue with donepezil 10 mg p.o. daily. 9. History of urine incontinence. Continue with Ditropan 5 mg p.o. h.s. 10.History of GERD. Prevacid 30 mg p.o. daily. 11.History of COPD. Continue home medication. 12.DVT prophylaxis. Heparin 5000 units subcutaneous twice a day. 13.GI prophylaxis. Protonix 40 mg p.o. daily. 14.We are going to manage the patient on a daily basis and make recommendations on a daily basis. Discussed Condition with: Patient Darrian Alberts MD Jul 30, 2016 09:08
[2016-07-30] MEDS: POTASSIUM CHLORIDE 20 MEQ CONTROLLED RELEASE TAB PO SCH ×2 (10:05→21:57)
[2016-07-30] MEDS: FUROSEMIDE 40 MG/4 ML VIAL IVP SCH ×2 (10:08→18:47)
[2016-07-30] MEDS: SODIUM CHLORIDE 0.9% FLUSH 5 ML FLUSH IVF SCH ×2 (10:09→19:16)
[2016-07-30] MEDS: HEPARIN SODIUM - SQ 10,000 UNITS/ML VIAL SQ SCH ×2 (10:12→21:57)
[2016-07-30] MEDS: DILTIAZEM HCL 60 MG TAB PO SCH ×3 (11:31→21:00)
[2016-07-30] MEDS: DILTIAZEM INJ 125 MG in SODIUM CHLORIDE 0.9% INJ 100 ML IV SCH (13:04)
--- NOTE | 2016-07-30 13:51 | EKG ---
Date Performed: 07/29/2016 Time Performed: 19:29:08 PTAGE: 89 years EKG: Atrial fibrillation with rapid ventricular response. Left axis deviation Inferior infarct - age undetermined Possible anterior infarct - age undetermined Abnormal ECG Compared to prior tracing no significant change PREVIOUS TRACING : 07/29/2016 13.18 DOCTOR: Merly Nova Interpretating Date/Time 07/30/2016 13:49:05
--- NOTE | 2016-07-30 13:51 | EKG ---
Date Performed: 07/29/2016 Time Performed: 13:18:52 PTAGE: 89 years EKG: Atrial fibrillation with multifocal PVCs or aberrant ventricular conduction Left axis devia tion Inferior infarct - age undetermined Possible anteroseptal infarct - age undetermined Abnormal EC G Compared to prior tracing no significant change PREVIOUS TRACING : 07/29/2016 08.18 DOCTOR: Merly Nova Interpretating Date/Time 07/30/2016 13:48:55
--- NOTE | 2016-07-30 19:37 | MB ---
cc: ETELVINA MAIN M.D. DATE OF CONSULTATION 07/30/16 REASON FOR CONSULTATION Respiratory failure. Patient with known chronic obstructive pulmonary disease and acute congestive heart failure. HISTORY OF PRESENT ILLNESS Mr. Rosas is an 89 year old male with known history of chronic obstructive pulmonary disease and obstructive sleep apnea on CPAP therapy. He has history of chronic atrial fibrillation, chronic obstructive pulmonary disease as well as congestive heart failure, admitted with increasing shortness of breath which has become progressively worse, felt to be with acute congestive heart failure for which he was hospitalized. PAST MEDICAL HISTORY 1. Chronic obstructive pulmonary disease 2. Obstructive sleep apnea 3. Coronary artery disease 4. Chronic atrial fibrillation 5. Hypertension 6. Hyperlipidemia 7. History of transient ischemic attack, cerebrovascular accident 8. Status post abdominal aortic aneurysm repair. MEDICATIONS At home, 1. Plavix 2. Digoxin 3. Nitroglycerine 4. Metoprolol 5. Cozaar 6. Diltiazem 7. Advair twice a day 8. Albuterol as needed 9. Tramadol. 10. Has been on diuretic therapy as well. ALLERGIES STATIN - CAUSE LEG CRAMPS AND WEAKNESS SOCIAL HISTORY Remote smoking history, not at present. Alcohol socially. No TB, no industrial exposure. FAMILY HISTORY Noncontributory. REVIEW OF SYSTEMS 12 point review of systems as per History of Present Illness and past history, otherwise, negative. PHYSICAL EXAMINATION VITAL SIGNS: Temperature 99, pulse 86, respirations 20, blood pressure 123/87, oxygen saturation 99% on two liters oxygen via nasal cannula, HEENT: Unremarkable. Eyes without icterus. NECK: Without adenopathy or thyroid enlargement CHEST: No dullness to percussion, clear to auscultation CARDIAC: Irregularity noted. ABDOMEN: Lax, bowel sounds audible. EXTREMITIES: Trace edema. LABORATORY DATA White count this a.m. 9.1. Hemoglobin 15, hematocrit 46, platelets 137,000. Sodium 143, potassium 3.5, BUN 19, creatinine 1.2. INR 1.3. IMAGING STUDIES X-ray done upon presentation with mild cardiomegaly, interstitial change noted bilaterally. IMPRESSION 1. Congestive heart failure 2. Chronic obstructive pulmonary disease 3. Obstructive sleep apnea 4. Chronic atrial fibrillation 5. Coronary artery disease PLAN The patient has been given diuretic therapy and indeed there is improvement in his symptomatology with less shortness of breath. He is using BiPAP therapy. He has always been compliant and continued to do so. The benefits of CPAP therapy in face of congestive heart failure discussed and explained in detail. Nebulizer therapy will be given on as needed basis. He is followed carefully in Intensive Care Unit at present. We will follow his care along with you and, depending on progress, proceed further. He is followed by cardiology for his underlying cardiac disease. I do thank you for asking me to partake in Mr. Rosas's care. Etelvina Main MD WWW/ /7:12 PM /7:17 PM
[2016-07-30] MEDS: RESP: ALBUTEROL 2.5 MG/IPRATROPIUM 0.5 MG NEB (SCH) NEB (21:15)
[2016-07-31] VITALS (19 sets, daily range): BP systolic 117–150; BP diastolic 75–94; PULSE 78–118; RESP 15–26; TEMP 97.5–99.1; O2SAT 94–96
[2016-07-31] MEDS: DILTIAZEM HCL 60 MG TAB PO SCH ×4 (00:21→17:35)
[2016-07-31] MEDS: CHLORHEXIDINE GLUCONATE 2 % 1 PACK (2 CLOTHS)(taper/protocol) TOP SCH (02:29)
[2016-07-31] MEDS: RESP: ALBUTEROL 2.5 MG/IPRATROPIUM 0.5 MG NEB (SCH) NEB ×4 (03:47→21:58)
[2016-07-31 05:36] LABS: AUTOMATED NEUTROPHIL # 5.2 TH/MM3 (1.8-7.7); BASOPHIL % 0.3 % (0.0-2.0); EOSINOPHIL # 0.9 TH/MM3 (0-0.4); EOSINOPHIL % 9.6 % (0.0-4.0); HEMATOCRIT 47.5 % (39.0-51.0); HEMO FLAGS DIFF FINAL; MEAN CELL VOLUME 95.3 FL (80.0-100.0); MEAN CORPUSCULAR HEMOGLOBIN 30.1 PG (27.0-34.0); MEAN CORPUSCULAR HGB CONC 31.6 % (32.0-36.0); MONO % 9.3 % (0.0-8.0); NEUT % 58.8 % (16.0-70.0); PLATELET COUNT 137 TH/MM3 (150-450); RED BLOOD COUNT 4.99 MIL/MM3 (4.50-5.90); RED CELL DISTRIBUTION WIDTH 14.1 % (11.6-17.2); WHITE BLOOD COUNT 8.9 TH/MM3 (4.0-11.0)
[2016-07-31 05:43] LABS: CHLORIDE 102 MEQ/L (98-107); POTASSIUM 3.6 MEQ/L (3.5-5.1); SODIUM (NA) 143 MEQ/L (136-145)
[2016-07-31 05:48] LABS: ANION GAP 7 MEQ/L (5-15); BICARBONATE 34.1 MEQ/L (21.0-32.0); BLOOD UREA NITROGEN 17 MG/DL (7-18)
[2016-07-31 05:51] LABS: ALT (GPT) 23 U/L (12-78); AST (GOT) 10 U/L (15-37); GLOMERULAR FILTRATION RATE 48 ML/MIN (>89)
[2016-07-31 05:53] LABS: TOTAL BILIRUBIN ADULT 0.7 MG/DL (0.2-1.0)
[2016-07-31 05:54] LABS: ALKALINE PHOSPHATASE 147 U/L (45-117)
--- NOTE | 2016-07-31 08:31 | HHI.PR ---
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 Physical therapy evaluation and treatment. UTI...Urine culture positive for Klebsiella Pneumoniae started on IV Levaquin. d/w patient happy with care provided by me All question answered to patient satisfaction. Review of Systems Constitutional Constitutional: Fatigue, Weakness Pulmonary Respiratory: Shortness of Breath Vitals/Results Intake & Output 07/30/16 07/30/16 07/31/16 15:00 23:00 07:00 Intake Total 798 ml 460 ml 100 ml Output Total 1350 ml 775 ml 100 ml Balance -552 ml -315 ml 0 ml Intake Oral 480 ml 420 ml 100 ml IV Total 318 ml 40 ml 0 ml Output Urine Total 1350 ml 775 ml 100 ml # Voids 3 # Bowel Movements 0 0 0 Vital Signs Vital Signs Date Time Temp Pulse Resp B/P Pulse Ox O2 Delivery O2 Flow Rate FiO2 07/31/16 07:48 94 21 07/31/16 06:36 87 07/31/16 06:01 80 15 134/82 07/31/16 05:01 82 15 130/79 07/31/16 04:01 97.5 78 18 117/79 07/31/16 04:00 85 07/31/16 03:01 80 17 144/84 95 07/31/16 02:00 82 07/31/16 02:00 82 15 128/81 07/31/16 01:00 86 15 132/82 07/31/16 00:00 98.3 82 17 124/81 95 07/31/16 00:00 82 07/30/16 23:00 88 29 126/62 95 07/30/16 22:00 80 07/30/16 22:00 80 18 111/70 97 07/30/16 21:22 82 29 104/71 98 07/30/16 21:15 95 21 07/30/16 20:08 82 23 127/94 94 07/30/16 20:00 70 07/30/16 19:01 97.6 82 22 128/86 96 07/30/16 19:00 96 Room Air 07/30/16 18:01 86 24 123/77 99 07/30/16 18:00 84 07/30/16 17:01 86 20 132/81 95 07/30/16 16:01 99.1 78 22 120/86 97 07/30/16 16:00 80 07/30/16 15:01 84 21 116/76 100 07/30/16 14:01 76 22 93/64 93 07/30/16 14:00 78 07/30/16 13:01 82 25 118/68 93 07/30/16 12:01 97.7 90 30 133/84 95 07/30/16 12:00 95 Room Air 07/30/16 12:00 86 07/30/16 11:01 92 24 126/76 95 07/30/16 11:00 92 07/30/16 10:01 78 19 121/78 96 07/30/16 10:00 80 07/30/16 09:01 82 15 124/84 96 07/30/16 09:00 80 CBC/BMP: 07/31/16 0425 07/31/16 0425 Lab Results Laboratory Tests Test 07/31/16 04:25 White Blood Count 8.9 TH/MM3 Red Blood Count 4.99 MIL/MM3 Hemoglobin 15.0 GM/DL Hematocrit 47.5 % Mean Corpuscular Volume 95.3 FL Mean Corpuscular Hemoglobin 30.1 PG Mean Corpuscular Hemoglobin 31.6 % Concent Red Cell Distribution Width 14.1 % Platelet Count 137 TH/MM3 Mean Platelet Volume 10.2 FL Neutrophils (%) (Auto) 58.8 % Lymphocytes (%) (Auto) 22.0 % Monocytes (%) (Auto) 9.3 % Eosinophils (%) (Auto) 9.6 % Basophils (%) (Auto) 0.3 % Neutrophils # (Auto) 5.2 TH/MM3 Lymphocytes # (Auto) 2.0 TH/MM3 Monocytes # (Auto) 0.8 TH/MM3 Eosinophils # (Auto) 0.9 TH/MM3 Basophils # (Auto) 0.0 TH/MM3 CBC Comment DIFF FINAL Differential Comment Sodium Level 143 MEQ/L Potassium Level 3.6 MEQ/L Chloride Level 102 MEQ/L Carbon Dioxide Level 34.1 MEQ/L Anion Gap 7 MEQ/L Blood Urea Nitrogen 17 MG/DL Creatinine 1.40 MG/DL Estimat Glomerular Filtration 48 ML/MIN Rate Random Glucose 145 MG/DL Calcium Level 8.4 MG/DL Total Bilirubin 0.7 MG/DL Aspartate Amino Transf 10 U/L (AST/SGOT) Alanine Aminotransferase 23 U/L (ALT/SGPT) Alkaline Phosphatase 147 U/L Total Protein 7.1 GM/DL Albumin 2.8 GM/DL Physical Exam General General Appearance: No Acute Distress, Comfortable Eyes Eye Exam: Pupils Equal, Pupils Reactive, Sclera White, Extraocular Movement Intact Throat Throat Exam: Oral Mucosa [place] & Moist, Oral Pharynx Normal Neck Neck Exam: Neck Supple, Trachea Midline Pulmonary Resp Exam: Crackles, Rhonchi Cardiology CV Exam: Regular Gastrointestinal/Abdomen GI Exam: Soft, Non-Tender, Bowel Sounds Present Musculoskeletal MS Exam: Normal Tone Integumentary Skin Exam: Clear, Warm, Dry, Intact Extremeties Extremities Exam: Pitting Edema Neurologic Neuro Exam: Alert, Awake, Oriented, Speech Clear, Moving All Extremities Psychiatric Psych Exam: Appropriate Responses VTE Prophylaxis VTE Prophylaxis Meds: Heparin PUD Prophylasis PUD Prophylaxis: Protonix Assessment/Plan Assessment/Plan ASSESSMENT AND PLAN 1. This is an 89-year-old male who came to the ER diagnosed with shortness of breath most probably secondary to acute on chronic systolic congestive heart failure. Will do strict I's and O's, daily weights, fluid restriction to 1.5 liters a day, salt restriction to 2 grams a day. The patient is on Lasix 40 mg PO twice a day. Cardiology input noted for further recommendations. 2 D Echo noted EF 30-35% 2. Shortness of breath with a history of COPD. Continue the home medication. 3. History of depression. Continue the home medication. 4. History of coronary artery disease with stent placement. Continue the home medication. 5. History of hyperlipidemia. Continue with Lipitor 80 mg p.o. daily. 6. History of depression. Continue with Lexapro 5 mg p.o. daily. 7. History of anxiety. Continue with clonazepam 0.5 mg p.o. h.s. p.r.n. anxiety. 8. History of dementia. Continue with donepezil 10 mg p.o. daily. 9. History of urine incontinence. Continue with Ditropan 5 mg p.o. h.s. 10.History of GERD. Prevacid 30 mg p.o. daily. 11.History of COPD. Continue home medication. 12.DVT prophylaxis. Heparin 5000 units subcutaneous twice a day. 13.GI prophylaxis. Protonix 40 mg p.o. daily. 14. UTI...Urine culture positive for Klebsiella Pneumoniae started on IV Levaquin. Physical therapy evaluation and treatment. DC Plan to rehab soon. We are going to manage the patient on a daily basis and make recommendations on a daily basis. Discussed Condition with: Patient Darrian Alberts MD Jul 31, 2016 08:31
[2016-07-31] MEDS ORDERED: CIPROFLOXACIN 200 MG PREMIX 100 ML IV SCH (09:00)
[2016-07-31] MEDS: HEPARIN SODIUM - SQ 10,000 UNITS/ML VIAL SQ SCH ×2 (09:27→20:40)
[2016-07-31] MEDS: POTASSIUM CHLORIDE 20 MEQ CONTROLLED RELEASE TAB PO SCH ×2 (09:28→20:40)
[2016-07-31] MEDS: FUROSEMIDE 40 MG TAB PO SCH ×2 (09:28→17:35)
--- NOTE | 2016-07-31 11:33 | RADHPO ---
EXAM DATE/TIME: 07/31/2016 09:55 [facility] COMPARISON: CHEST PA & LAT, January 11, 2015, 20:10. INDICATIONS : Congestive heart failure, short of breath. MEDICAL HISTORY : Hypercholesterolemia. Cholelithiasis. Congestive heart failure. CVA. A-fib. NV. AAA. GERD.Arthrit is. SURGICAL HISTORY : Abdominal aortic aneurysm repair. Appendectomy. Cardiac cath. ENCOUNTER: Subsequent ACUITY: 3 days PAIN SCORE: 0/10 LOCATION: chest FINDINGS: Heart is mildly enlarged. Diffuse vascular engorgement is noted. Small amount of fluid is acute bleed ing within the interlobar fissures. There is no significant pleural effusion. CONCLUSION: Cardiomegaly with mild pulmonary congestive changes. No evidence of consolidating airspace disease. Steven Dodson MD on July 31, 2016 at 11:31 Board Certified Radiologist. This report was verified electronically.
[2016-07-31] MEDS: SODIUM CHLORIDE 0.9% FLUSH 5 ML FLUSH IVF SCH ×2 (12:14→20:40)
[2016-07-31] MEDS: CIPROFLOXACIN 200 MG PREMIX 100 ML IV SCH ×2 (12:15→20:44)
[2016-08-01] VITALS (15 sets, daily range): BP systolic 123–150; BP diastolic 79–107; PULSE 88–106; RESP 15–22; TEMP 97.9–98.6; O2SAT 94–99
[2016-08-01] MEDS: DILTIAZEM HCL 60 MG TAB PO SCH ×5 (00:19→23:28)
[2016-08-01] MEDS ORDERED: traZODone HCL 50 MG TAB PO PRN ×2 (01:15)
[2016-08-01] MEDS: RESP: ALBUTEROL 2.5 MG/IPRATROPIUM 0.5 MG NEB (SCH) NEB ×4 (03:00→21:28)
[2016-08-01] MEDS: CHLORHEXIDINE GLUCONATE 2 % 1 PACK (2 CLOTHS)(taper/protocol) TOP SCH (04:00)
[2016-08-01 04:48] LABS: AUTOMATED NEUTROPHIL # 5.4 TH/MM3 (1.8-7.7); BASOPHIL % 0.4 % (0.0-2.0); EOSINOPHIL # 0.7 TH/MM3 (0-0.4); EOSINOPHIL % 8.6 % (0.0-4.0); HEMATOCRIT 43.8 % (39.0-51.0); HEMO FLAGS DIFF FINAL; LYMPH % 20.8 % (9.0-44.0); LYMPHOCYTE # 1.8 TH/MM3 (1.0-4.8); MEAN CELL VOLUME 92.6 FL (80.0-100.0); MEAN CORPUSCULAR HEMOGLOBIN 30.1 PG (27.0-34.0); MEAN CORPUSCULAR HGB CONC 32.6 % (32.0-36.0); MONO % 9.2 % (0.0-8.0); PLATELET COUNT 134 TH/MM3 (150-450); RED BLOOD COUNT 4.74 MIL/MM3 (4.50-5.90); RED CELL DISTRIBUTION WIDTH 13.3 % (11.6-17.2); WHITE BLOOD COUNT 8.7 TH/MM3 (4.0-11.0)
[2016-08-01 04:59] LABS: CHLORIDE 103 MEQ/L (98-107); POTASSIUM 3.5 MEQ/L (3.5-5.1); SODIUM (NA) 142 MEQ/L (136-145)
[2016-08-01 05:02] LABS: ANION GAP 8 MEQ/L (5-15); BICARBONATE 30.9 MEQ/L (21.0-32.0); BLOOD UREA NITROGEN 13 MG/DL (7-18)
[2016-08-01 05:05] LABS: GLOMERULAR FILTRATION RATE 57 ML/MIN (>89)
[2016-08-01 05:06] LABS: ALT (GPT) 19 U/L (12-78); AST (GOT) 11 U/L (15-37)
[2016-08-01 05:07] LABS: TOTAL BILIRUBIN ADULT 0.6 MG/DL (0.2-1.0)
[2016-08-01 05:08] LABS: ALKALINE PHOSPHATASE 143 U/L (45-117)
--- NOTE | 2016-08-01 07:00 | HHI.PR ---
Subjective History of Present Illness Patient feel better SOB Better on cardiozem PO d/w [employer] Faiza PERDOMO Plan to rehab today.. Physical therapy evaluation and treatment. UTI...Urine culture positive for Klebsiella Pneumoniae on IV Cipro...sensitive to cipro.. d/w patient happy with care provided by me All question answered to patient satisfaction. Review of Systems Constitutional Constitutional: Fatigue, Weakness Pulmonary Respiratory: Shortness of Breath Vitals/Results Intake & Output 07/31/16 07/31/16 08/01/16 15:00 23:00 07:00 Intake Total 475 ml 780 ml Output Total 975 ml 700 ml 675 ml Balance -500 ml 80 ml -675 ml Intake Oral 350 ml 660 ml IV Total 125 ml 120 ml Output Urine Total 975 ml 700 ml 675 ml # Voids 3 # Bowel Movements 1 0 0 Vital Signs Vital Signs Date Time Temp Pulse Resp B/P Pulse Ox O2 Delivery O2 Flow Rate FiO2 08/01/16 06:00 92 16 08/01/16 04:00 98.5 92 15 143/79 08/01/16 04:00 99 08/01/16 00:13 98.6 96 16 140/97 95 08/01/16 00:00 106 07/31/16 20:12 98.0 118 26 150/92 94 07/31/16 20:00 96 Room Air 07/31/16 20:00 94 07/31/16 19:25 96 21 07/31/16 16:45 99 07/31/16 16:44 98.1 96 22 141/94 07/31/16 12:15 99 07/31/16 11:51 98.9 86 21 124/75 07/31/16 08:00 99 07/31/16 07:48 94 21 07/31/16 07:15 94 Room Air 07/31/16 07:01 99.1 92 17 119/76 CBC/BMP: 08/01/16 0427 08/01/16 0427 Lab Results Laboratory Tests Test 08/01/16 04:27 White Blood Count 8.7 TH/MM3 Red Blood Count 4.74 MIL/MM3 Hemoglobin 14.3 GM/DL Hematocrit 43.8 % Mean Corpuscular Volume 92.6 FL Mean Corpuscular Hemoglobin 30.1 PG Mean Corpuscular Hemoglobin 32.6 % Concent Red Cell Distribution Width 13.3 % Platelet Count 134 TH/MM3 Mean Platelet Volume 9.5 FL Neutrophils (%) (Auto) 61.0 % Lymphocytes (%) (Auto) 20.8 % Monocytes (%) (Auto) 9.2 % Eosinophils (%) (Auto) 8.6 % Basophils (%) (Auto) 0.4 % Neutrophils # (Auto) 5.4 TH/MM3 Lymphocytes # (Auto) 1.8 TH/MM3 Monocytes # (Auto) 0.8 TH/MM3 Eosinophils # (Auto) 0.7 TH/MM3 Basophils # (Auto) 0.0 TH/MM3 CBC Comment DIFF FINAL Differential Comment Sodium Level 142 MEQ/L Potassium Level 3.5 MEQ/L Chloride Level 103 MEQ/L Carbon Dioxide Level 30.9 MEQ/L Anion Gap 8 MEQ/L Blood Urea Nitrogen 13 MG/DL Creatinine 1.20 MG/DL Estimat Glomerular Filtration 57 ML/MIN Rate Random Glucose 101 MG/DL Calcium Level 7.9 MG/DL Total Bilirubin 0.6 MG/DL Aspartate Amino Transf 11 U/L (AST/SGOT) Alanine Aminotransferase 19 U/L (ALT/SGPT) Alkaline Phosphatase 143 U/L Total Protein 7.1 GM/DL Albumin 2.7 GM/DL Physical Exam General General Appearance: No Acute Distress, Comfortable Eyes Eye Exam: Pupils Equal, Pupils Reactive, Sclera White, Extraocular Movement Intact Throat Throat Exam: Oral Mucosa [place] & Moist, Oral Pharynx Normal Neck Neck Exam: Neck Supple, Trachea Midline Pulmonary Resp Exam: Crackles, Rhonchi Cardiology CV Exam: Regular Gastrointestinal/Abdomen GI Exam: Soft, Non-Tender, Bowel Sounds Present Musculoskeletal MS Exam: Normal Tone Integumentary Skin Exam: Clear, Warm, Dry, Intact Extremeties Extremities Exam: Pitting Edema Neurologic Neuro Exam: Alert, Awake, Oriented, Speech Clear, Moving All Extremities Psychiatric Psych Exam: Appropriate Responses VTE Prophylaxis VTE Prophylaxis Meds: Heparin PUD Prophylasis PUD Prophylaxis: Protonix Assessment/Plan Assessment/Plan ASSESSMENT AND PLAN 1. This is an 89-year-old male who came to the ER diagnosed with shortness of breath most probably secondary to acute on chronic systolic congestive heart failure. Will do strict I's and O's, daily weights, fluid restriction to 1.5 liters a day, salt restriction to 2 grams a day. The patient is on Lasix 40 mg PO twice a day. Cardiology input noted for further recommendations. 2 D Echo noted EF 30-35% 2. Shortness of breath with a history of COPD. Continue the home medication. 3. History of depression. Continue the home medication. 4. History of coronary artery disease with stent placement. Continue the home medication. 5. History of hyperlipidemia. Continue with Lipitor 80 mg p.o. daily. 6. History of depression. Continue with Lexapro 5 mg p.o. daily. 7. History of anxiety. Continue with clonazepam 0.5 mg p.o. h.s. p.r.n. anxiety. 8. History of dementia. Continue with donepezil 10 mg p.o. daily. 9. History of urine incontinence. Continue with Ditropan 5 mg p.o. h.s. 10.History of GERD. Prevacid 30 mg p.o. daily. 11.History of COPD. Continue home medication. 12.DVT prophylaxis. Heparin 5000 units subcutaneous twice a day. 13.GI prophylaxis. Protonix 40 mg p.o. daily. 14. UTI...Urine culture positive for Klebsiella Pneumoniae on IV Cipro. Physical therapy evaluation and treatment. DC Plan to rehab today. We are going to manage the patient on a daily basis and make recommendations on a daily basis. Discussed Condition with: Patient Darrian Alberts MD Aug 01, 2016 07:00
[2016-08-01] MEDS: HEPARIN SODIUM - SQ 10,000 UNITS/ML VIAL SQ SCH ×2 (08:41→21:43)
[2016-08-01] MEDS: POTASSIUM CHLORIDE 20 MEQ CONTROLLED RELEASE TAB PO SCH ×2 (08:41→21:42)
[2016-08-01] MEDS: FUROSEMIDE 40 MG TAB PO SCH ×2 (08:42→17:20)
[2016-08-01] MEDS: SODIUM CHLORIDE 0.9% FLUSH 5 ML FLUSH IVF SCH ×2 (08:43→21:43)
[2016-08-01] MEDS: CIPROFLOXACIN 200 MG PREMIX 100 ML IV SCH ×2 (08:47→21:43)
[2016-08-01] MEDS ORDERED: CLON0.5T PO (08:48)
[2016-08-01] MEDS ORDERED: FURO1TAB60 PO (08:48)
[2016-08-01] MEDS ORDERED: CIPR-9 PO (08:48)
[2016-08-01] MEDS ORDERED: DILT-64 PO (08:48)
[2016-08-02] VITALS (8 sets, daily range): BP systolic 121–148; BP diastolic 71–108; PULSE 74–111; RESP 18; TEMP 97.3–98.6; O2SAT 91–96
[2016-08-02] MEDS: RESP: ALBUTEROL 2.5 MG/IPRATROPIUM 0.5 MG NEB (SCH) NEB ×3 (03:11→15:41)
[2016-08-02] MEDS: CHLORHEXIDINE GLUCONATE 2 % 1 PACK (2 CLOTHS)(taper/protocol) TOP SCH (03:49)
[2016-08-02 04:39] LABS: AUTOMATED NEUTROPHIL # 4.7 TH/MM3 (1.8-7.7); BASOPHIL % 0.6 % (0.0-2.0); EOSINOPHIL # 0.6 TH/MM3 (0-0.4); EOSINOPHIL % 7.7 % (0.0-4.0); HEMO FLAGS DIFF FINAL; LYMPH % 20.9 % (9.0-44.0); LYMPHOCYTE # 1.6 TH/MM3 (1.0-4.8); MEAN CELL VOLUME 91.6 FL (80.0-100.0); MEAN CORPUSCULAR HEMOGLOBIN 30.1 PG (27.0-34.0); MEAN CORPUSCULAR HGB CONC 32.9 % (32.0-36.0); MONO % 10.2 % (0.0-8.0); NEUT % 60.6 % (16.0-70.0); PLATELET COUNT 132 TH/MM3 (150-450); RED BLOOD COUNT 4.91 MIL/MM3 (4.50-5.90); RED CELL DISTRIBUTION WIDTH 13.1 % (11.6-17.2); WHITE BLOOD COUNT 7.7 TH/MM3 (4.0-11.0)
[2016-08-02 04:49] LABS: CHLORIDE 102 MEQ/L (98-107); POTASSIUM 3.6 MEQ/L (3.5-5.1); SODIUM (NA) 141 MEQ/L (136-145)
[2016-08-02 04:53] LABS: ANION GAP 10 MEQ/L (5-15); BICARBONATE 29.5 MEQ/L (21.0-32.0); BLOOD UREA NITROGEN 12 MG/DL (7-18)
[2016-08-02 04:56] LABS: ALT (GPT) 22 U/L (12-78); AST (GOT) 20 U/L (15-37); GLOMERULAR FILTRATION RATE 63 ML/MIN (>89)
[2016-08-02 04:58] LABS: ALKALINE PHOSPHATASE 153 U/L (45-117)
[2016-08-02] MEDS: DILTIAZEM HCL 60 MG TAB PO SCH ×3 (06:27→16:53)
--- NOTE | 2016-08-02 08:21 | HHI.PR ---
Subjective History of Present Illness Patient feel better SOB Better on cardiozem PO d/w [employer] Faiza PERDOMO Plan to rehab today.. Physical therapy evaluation and treatment done. UTI...Urine culture positive for Klebsiella Pneumoniae on IV Cipro...sensitive to cipro.. d/w patient happy with care provided by me All question answered to patient satisfaction...ok to dc to rehab today. Review of Systems Constitutional Constitutional: Fatigue, Weakness Pulmonary Respiratory: Shortness of Breath Vitals/Results Intake & Output 08/01/16 08/01/16 08/02/16 15:00 23:00 07:00 Intake Total 575 ml 440 ml 320 ml Output Total 675 ml 1200 ml 800 ml Balance -100 ml -760 ml -480 ml Intake Oral 450 ml 240 ml 320 ml IV Total 125 ml 200 ml Output Urine Total 675 ml 1200 ml 800 ml # Bowel Movements 1 0 0 Vital Signs Vital Signs Date Time Temp Pulse Resp B/P Pulse Ox O2 Delivery O2 Flow Rate FiO2 08/02/16 04:00 97.8 74 18 125/71 91 08/02/16 03:11 Nasal Cannula 2.00 08/02/16 00:00 98.6 102 18 148/108 93 08/01/16 23:00 92 08/01/16 22:04 97.9 102 18 150/107 94 08/01/16 21:29 95 21 08/01/16 20:00 102 08/01/16 20:00 98.4 102 22 130/81 98 08/01/16 19:00 98 Nasal Cannula 2.00 08/01/16 16:45 88 08/01/16 16:03 98.0 94 21 134/86 95 08/01/16 12:31 101 08/01/16 12:00 97.9 100 21 95 08/01/16 09:31 96 21 08/01/16 08:53 98.1 98 21 123/90 99 CBC/BMP: 08/02/16 0430 08/02/16 0430 Lab Results Laboratory Tests Test 08/02/16 04:30 White Blood Count 7.7 TH/MM3 Red Blood Count 4.91 MIL/MM3 Hemoglobin 14.8 GM/DL Hematocrit 45.0 % Mean Corpuscular Volume 91.6 FL Mean Corpuscular Hemoglobin 30.1 PG Mean Corpuscular Hemoglobin 32.9 % Concent Red Cell Distribution Width 13.1 % Platelet Count 132 TH/MM3 Mean Platelet Volume 9.4 FL Neutrophils (%) (Auto) 60.6 % Lymphocytes (%) (Auto) 20.9 % Monocytes (%) (Auto) 10.2 % Eosinophils (%) (Auto) 7.7 % Basophils (%) (Auto) 0.6 % Neutrophils # (Auto) 4.7 TH/MM3 Lymphocytes # (Auto) 1.6 TH/MM3 Monocytes # (Auto) 0.8 TH/MM3 Eosinophils # (Auto) 0.6 TH/MM3 Basophils # (Auto) 0.0 TH/MM3 CBC Comment DIFF FINAL Differential Comment Sodium Level 141 MEQ/L Potassium Level 3.6 MEQ/L Chloride Level 102 MEQ/L Carbon Dioxide Level 29.5 MEQ/L Anion Gap 10 MEQ/L Blood Urea Nitrogen 12 MG/DL Creatinine 1.10 MG/DL Estimat Glomerular Filtration 63 ML/MIN Rate Random Glucose 98 MG/DL Calcium Level 8.0 MG/DL Total Bilirubin 1.0 MG/DL Aspartate Amino Transf 20 U/L (AST/SGOT) Alanine Aminotransferase 22 U/L (ALT/SGPT) Alkaline Phosphatase 153 U/L Total Protein 7.3 GM/DL Albumin 2.8 GM/DL Physical Exam General General Appearance: No Acute Distress, Comfortable Eyes Eye Exam: Pupils Equal, Pupils Reactive, Sclera White, Extraocular Movement Intact Throat Throat Exam: Oral Mucosa [place] & Moist, Oral Pharynx Normal Neck Neck Exam: Neck Supple, Trachea Midline Pulmonary Resp Exam: Crackles, Rhonchi Cardiology CV Exam: Regular Gastrointestinal/Abdomen GI Exam: Soft, Non-Tender, Bowel Sounds Present Musculoskeletal MS Exam: Normal Tone Integumentary Skin Exam: Clear, Warm, Dry, Intact Extremeties Extremities Exam: Pitting Edema Neurologic Neuro Exam: Alert, Awake, Oriented, Speech Clear, Moving All Extremities Psychiatric Psych Exam: Appropriate Responses VTE Prophylaxis VTE Prophylaxis Meds: Heparin PUD Prophylasis PUD Prophylaxis: Protonix Assessment/Plan Assessment/Plan ASSESSMENT AND PLAN 1. This is an 89-year-old male who came to the ER diagnosed with shortness of breath most probably secondary to acute on chronic systolic congestive heart failure. Will do strict I's and O's, daily weights, fluid restriction to 1.5 liters a day, salt restriction to 2 grams a day. The patient is on Lasix 40 mg PO twice a day. Cardiology input noted for further recommendations. 2 D Echo noted EF 30-35% 2. Shortness of breath with a history of COPD. Continue the home medication. 3. History of depression. Continue the home medication. 4. History of coronary artery disease with stent placement. Continue the home medication. 5. History of hyperlipidemia. Continue with Lipitor 80 mg p.o. daily. 6. History of depression. Continue with Lexapro 5 mg p.o. daily. 7. History of anxiety. Continue with clonazepam 0.5 mg p.o. h.s. p.r.n. anxiety. 8. History of dementia. Continue with donepezil 10 mg p.o. daily. 9. History of urine incontinence. Continue with Ditropan 5 mg p.o. h.s. 10.History of GERD. Prevacid 30 mg p.o. daily. 11.History of COPD. Continue home medication. 12.DVT prophylaxis. Heparin 5000 units subcutaneous twice a day. 13.GI prophylaxis. Protonix 40 mg p.o. daily. 14. UTI...Urine culture positive for Klebsiella Pneumoniae on IV Cipro. Physical therapy evaluation and treatment. ok to dc to rehab today. f/u with pcp/cardiology/ pulmonary 1 week. Discussed Condition with: Patient Darrian Alberts MD Aug 02, 2016 08:21
[2016-08-02] MEDS: CIPROFLOXACIN 200 MG PREMIX 100 ML IV SCH (09:20)
[2016-08-02] MEDS: FUROSEMIDE 40 MG TAB PO SCH ×2 (09:21→16:52)
[2016-08-02] MEDS: SODIUM CHLORIDE 0.9% FLUSH 5 ML FLUSH IVF SCH (09:21)
[2016-08-02] MEDS: HEPARIN SODIUM - SQ 10,000 UNITS/ML VIAL SQ SCH (09:21)
[2016-08-02] MEDS: POTASSIUM CHLORIDE 20 MEQ CONTROLLED RELEASE TAB PO SCH (09:21)
--- NOTE | 2016-08-06 11:48 | MD ---
cc: DARRIAN AKHTAR MD ADMISSION DATE: 07/29/2016 DISCHARGE DATE: 08/02/2016 Okay to discharge the patient to the half-way facility. Condition at the time of discharge: Satisfactory. Activity: As tolerated. Diet: Cardiac diet. ALLERGIES No known drug allergies. DISCHARGE MEDICATIONS 1. Cipro 500 mg twice a day for 7 days. 2. Clonazepam 0.5 mg twice a day. 3. Diltiazem 240 mg p.o. daily. 4. Lasix 40 mg p.o. daily. 5. ProAir HFA, two puffs inhalation q.6h. 6. Amlodipine 5 mg p.o. daily. 7. Lipitor 80 mg q.h.s. 8. Symbicort 160/4.5 mcg, two puffs inhalation q.12h. 9. Clonazepam 0.5 mg h.s. 10.Plavix 75 mg p.o. daily. 11.Donepezil 10 mg p.o. h.s. 12.Lexapro 5 mg p.o. daily. 13.Advair Diskus, one puff inhalation twice a day. 14.Prevacid 30 mg p.o. daily. 15.Losartan 50 mg p.o. daily. 16.Oxybutynin 5 mg p.o. h.s. 17.Prednisone 5 mg p.o. daily. 18.Trazodone 50 mg p.o. h.s. Patient advised to follow with PCP, pulmonary and cardiology. ADMITTING DIAGNOSIS 1. Shortness of breath secondary to acute on chronic systolic congestive heart failure. The patient got IV Lasix and also strict I's and O's, daily weight and fluid restriction to two liters a day. Salt restriction to 2 grams a day. Patient's condition improved. 2. History of COPD. 3. History of depression. 4. History of coronary artery disease; patient status post stent placement. 5. History of hyperlipidemia. 6. History of anxiety. 7. History of dementia. 8. History of urinary incontinence. 9. History of GERD. 10.Urinary tract infection; patient's urine culture positive for Klebsiella pneumoniae. The patient was given Cipro during the hospital stay. The patient remained stable. HOSPITAL COURSE This is an 89-year-old male admitted with the above-mentioned complaints and problems. Remained hospitalized with a good outcome and seen by cardiology and pulmonary. The patient was discharged in satisfactory condition. Further details in the medical record. Darrian Akhtar MD EA/DAVID /5:22 PM /11:36 AM
== END 2016-08-02 18:25 | DRG 292 ==
LOC: PHED 04:26 → PHEDA 07:45 → PHEDH 11:53 → PHICU 16:55 → PH3A 08-01 22:04
PROVIDERS: ADMIT Family Medicine; ATTEND Family Medicine
DX: I50.23 Acute on chronic systolic (congestive) heart failure (principal); N39.0 Urinary tract infection, site not specified; B96.1 Klebsiella pneumoniae [K. pneumoniae] as the cause of diseases classified elsewhere; F03.90 Unspecified dementia, unspecified severity, without behavioral disturbance, psychotic disturbance, mood disturbance, and anxiety; J44.9 Chronic obstructive pulmonary disease, unspecified; I48.2 Chronic atrial fibrillation; F32.9 Major depressive disorder, single episode, unspecified; I25.10 Atherosclerotic heart disease of native coronary artery without angina pectoris; Z95.5 Presence of coronary angioplasty implant and graft; E78.5 Hyperlipidemia, unspecified; F41.9 Anxiety disorder, unspecified; R32 Unspecified urinary incontinence; K21.9 Gastro-esophageal reflux disease without esophagitis; Z86.73 Personal history of transient ischemic attack (TIA), and cerebral infarction without residual deficits; G47.33 Obstructive sleep apnea (adult) (pediatric); M79.7 Fibromyalgia; I10 Essential (primary) hypertension; H91.90 Unspecified hearing loss, unspecified ear; Z87.891 Personal history of nicotine dependence
CPT/HCPCS: 71010; 71020; 80053; 80162; 81001; 82550; 83605; 83735; 83880; 84100; 84484; 85025; 85610; 85730; 87040; 87077; 87086; 87186; 87641; 93005; 93306; 94640; 94664; 96365; 96366; 96375; 96376; J0696; J0744; J1644; J1940; J3480